=== PATIENT | female | born 1955 | race Caucasian/White ===

== ENCOUNTER → 2016-08-17 | Outpatient (CLI) | payer OTHER ==
--- NOTE | 2016-08-18 08:14 | US ---
EXAMINATION TYPE: US kidneys/renal and bladder DATE OF EXAM: 08/17/2016 4:31 PM COMPARISON: NONE CLINICAL HISTORY: Blood in Urine R31.9. UTI, Microscopic hematuria EXAM MEASUREMENTS: Right Kidney: 10.0 x 4.2 x 4.2 cm Left Kidney: 10.4 x 4.9 x 5.1 cm TECHNOLOGIST IMPRESSION: wnl Right Kidney: wnl Left Kidney: wnl Bladder: wnl Bilateral Jets seen: Yes There is no evidence for hydronephrosis at this point in time. No nephrolithiasis is seen. No negin s are identified. The urinary bladder is anechoic. Bilateral ureteral jets are seen. IMPRESSION: Normal renal ultrasound.
== END | disposition home or self-care (01) ==
LOC: RADUSWWP 16:17
PROVIDERS: ATTEND Family Medicine
DX: R31.9 Hematuria, unspecified (principal)
CPT/HCPCS: 76770

== ENCOUNTER → 2016-10-15 | Outpatient (CLI) | payer OTHER ==
--- NOTE | 2016-10-15 13:41 | CT ---
EXAMINATION TYPE: CT pelvis wo con DATE OF EXAM: 10/15/2016 1:25 PM COMPARISON: NONE HISTORY: Patient complains of spasming bladder and feeling like she has a UTI. CT DLP: 250.1 mGycm Automated exposure control for dose reduction was used. FINDINGS: Visualized viscera are unremarkable. The uterus and ovaries are not visualized. The bladder is unremarkable. The sigmoid colon is collapsed. I cannot assess wall thickness. The appendix is normal. Visualized small bowel loops appear normal. No free fluid and no free air is seen. There is mild facet arthropathy at L5-S1. No bony destructive lesion is seen. There are mild degenera tive changes within the hips. IMPRESSION: 1. NO ACUTE INFLAMMATORY ABNORMALITY. 2. MILD DEGENERATIVE CHANGE WITHIN THE HIPS AND SPINE. 3. COLLAPSE OF THE SIGMOID COLON MAKES IT IMPOSSIBLE TO EXCLUDE COLONIC WALL THICKENING. PLEASE CORRE LATE CLINICALLY TO EXCLUDE COLITIS.
== END | disposition home or self-care (01) ==
LOC: RADCTMAIN 12:18
PROVIDERS: ATTEND Family Medicine
DX: R10.2 Pelvic and perineal pain (principal)
CPT/HCPCS: 72192

== ENCOUNTER → 2020-08-28 | Outpatient (CLI) | payer OTHER ==
--- NOTE | 2020-08-28 21:00 | US ---
EXAMINATION TYPE: US kidneys/renal and bladder DATE OF EXAM: 08/28/2020 COMPARISON: 08/17/2016 CLINICAL HISTORY: R82.89 ABN FINDINGS ON CYTOLOGICAL EXAMINATION. Abnormal urine analysis. Recent UTI . EXAM MEASUREMENTS: Right Kidney: 9.8 x 4.5 x 4.2 cm Left Kidney: 10.0 x 4.8 x 4.7 cm Right Kidney: No hydronephrosis or masses seen Left Kidney: No hydronephrosis or masses seen Bladder: anechoic, wnl Bilateral Jets seen IMPRESSION: 1. Normal renal ultrasound
== END | disposition home or self-care (01) ==
LOC: RADUSWWP 15:30
PROVIDERS: ATTEND Family Medicine
DX: R82.89 Other abnormal findings on cytological and histological examination of urine (principal)
CPT/HCPCS: 76770